=== PATIENT | female | born 1980 | race Caucasian/White ===

== ENCOUNTER 2019-04-11 15:26 | Emergency (ER) | payer BC ==
[2019-04-11 16:02] LABS: #Basophils 0.1 thou/uL (0.0-0.2); #Eosinphils 0.2 thou/uL (0.0-0.7); #Lymphocytes 2.4 thou/uL (1.20-3.40); #Monocytes 0.7 thou/uL (0.11-0.59); #Neutrophils 7.4 thou/uL (1.40-6.50); %Basophils 0.8 % (0.0-1.0); %Lymphocytes 22.2 % (21.0-51.0); %Monocytes 6.3 % (0.0-10.0); %Neutrophils 68.8 % (42.0-75.0); Hemoglobin 12.5 g/dL (12.0-16.0); Mean Corpuscular HGB CONC 32.1 g/dL (32.0-36.0); Mean Corpuscular Hemoglobin 25.3 pg (27.0-31.0); Mean Corpuscular Volume 78.9 fL (78.0-98.0); Mean Platelet Volume 6.9 fL (7.4-10.4); Platelet Count 371 thou/uL (130-400); RBC Distribution Width 14.6 % (11.5-14.5); Red Blood Cell (RBC) Count 4.96 mill/uL (4.20-5.40); White Blood Cell (WBC) Count 10.7 thou/uL (4.8-10.8)
[2019-04-11 16:34] LABS: ALT (SGPT) 11 U/L (8-55); AST (SGOT) 11 U/L (5-34); Albumin 4.5 g/dL (3.5-5.0); Alkaline Phosphatase 60 U/L (40-150); Anion Gap 14 mmol/L (10-20); BUN (Urea Nitrogen) 13 mg/dL (7.0-18.7); Bilirubin, Total 0.3 mg/dL (0.2-1.2); Calc. Creatinine Clearance 0 mL/min (70-130); Calcium 9.9 mg/dL (7.8-10.44); Carbon Dioxide 20 mmol/L (22-29); Chloride 107 mmol/L (98-107); Estimated GFR-MDRD 88; Globulin 2.8 g/dL (2.4-3.5); Glucose 140 mg/dL (70-105); Protein, Total 7.3 g/dL (6.0-8.3); Sodium 137 mmol/L (136-145)
[2019-04-11 17:18] LABS: Bilirubin Negative (Negative); Blood, Urine Negative (Negative); Clarity Clear (Clear); Glucose, Urine (Dipstick) Normal (Negative); Leukocyte Negative Leu/uL (Negative); Nitrite Negative (Negative); Protein, Urine (Dipstick) Negative (Neg-Trace); Urobilinogen Normal mg/dL (Less than 2)
[2019-04-11 17:20] LABS: Pregnancy Test - Urine (BHCG) Negative (Negative); Pregu Control Background? CLEAR/WHITE (CLR/WHITE); Pregu Control Bar Appear? YES (CONTROL BAR); Specific Gravity 1.015 (1.002-1.036)
[2019-04-11] MEDS ORDERED: Ketorolac Tromethamine 30 MG/ML VIAL ONE (18:02)
--- NOTE | 2019-04-11 19:55 | ULT ---
PELVIC ULTRASOUND COMPLETE INCLUDING TRANSABDOMINAL, TRANSVAGINAL, AND VASCULAR DUPLEX WITH COLOR AND SPECTRAL DOPPLER IMAGING: History: Pelvic pain, pressure for one day. FINDINGS: The uterus measures 9.9 x 5.2 x 5.9 cm. Endometrium 1.3 cm. Right ovary measures 3.1 x 2.4 x 2.6 cm. Left ovary measures 4.9 x 3.1 x 2.7 cm and contains a 1.6 x 1.7 x 2.4 cm cyst. 0.7 x 0.8 cm nabothian cyst. There is some heterogeneous somewhat echogenic free cul-de-sac fluid. There is a prominent lori unt of bowel around the uterus. Vascular flow is documented bilaterally. No evidence for ovarian torsion. IMPRESSION: Minimal somewhat poorly defined echogenic cul-de-sac fluid. Bowel gas noted around the uterus. Left o varian incidental follicle cyst. POS: [facility]
== END 2019-04-11 20:01 | disposition home or self-care (01) ==
LOC: ERS 15:26
DX: N83.202 Unspecified ovarian cyst, left side (principal); R42 Dizziness and giddiness
CPT/HCPCS: 36415; 76856; 80053; 81003; 81025; 84443; 85025; 93005; 96361; 96374; J1885

== ENCOUNTER 2020-06-13 07:32 | Outpatient (CLI) | payer BC ==
--- NOTE | 2020-06-13 08:32 | ULT ---
RIGHT UPPER QUADRANT ULTRASOUND: Date: 06/13/2020 HISTORY: Right upper quadrant pain. FINDINGS: The liver, pancreas, and right kidney are normal. There are nonshadowing immobile echogenic foci evonne ing from the wall of the gallbladder, the largest of these measures 4.0 x 5.0 mm. These are consisten t with gallbladder polyps. No shadowing gallstones, gallbladder wall thickening, or pericholecystic f luid seen. The common duct measures 4-5 mm in diameter. No free fluid is seen in Morison's pouch. IMPRESSION: Gallbladder polyps, the largest measuring 5.0 mm. POS: OFF
== END 2020-06-13 07:33 | disposition home or self-care (01) ==
LOC: SCSULT 07:32
PROVIDERS: ATTEND Physician Assistant
DX: R10.11 Right upper quadrant pain (principal); K82.4 Cholesterolosis of gallbladder
CPT/HCPCS: 76705

== ENCOUNTER 2023-06-18 09:35 | Outpatient (CLI) | payer BC | END 2023-06-18 09:36 | disposition home or self-care (01) | LOC: BICRAD 09:35 | PROVIDERS: ATTEND Family Medicine | DX: D17.1 Benign lipomatous neoplasm of skin and subcutaneous tissue of trunk (principal) ==